=== PATIENT | male | born 1990 | race African-American/Black ===

== ENCOUNTER 2024-08-17 13:11 | Emergency (ER) | payer OTHER, SELFPAY ==
--- NOTE | ~2024-08-17 | XR_ITS ---
XR abdomen/kub 1V Ordering provider: Christian Howard APRN History: . abdomen cramping- r/o constipation . Comparison: None. FINDINGS: BOWEL: Nonobstructive bowel gas pattern. ORGANOMEGALY: None. SIGNIFICANT PATHOLOGIC CALCIFICATIONS: None. OTHER: No free air is seen under the diaphragm. IMPRESSION: NO ACUTE ABDOMINAL FINDINGS. Reviewed, dictated and finalized at location A.
--- NOTE | 2024-08-17 13:25 | ED_ITS ---
HPI - Abdominal Pain General Chief Complaint: Abdominal Pain <Christian Howard APRN - Last Filed: 08/17/24 15:07> Stated Complaint: Abdominal Pain <Christian Howard APRN - Last Filed: 08/17/24 15:07> Time Seen by Provider: 08/17/24 13:58 <Christian Howard APRN - Last Filed: 08/17/24 15:07> Source: patient <Christian Howard APRN - Last Filed: 08/17/24 15:07> Mode of arrival: ambulatory <Christian Howard APRN - Last Filed: 08/17/24 15:07> Limitations: no limitations <Christian Howard APRN - Last Filed: 08/17/24 15:07> History of Present Illness HPI narrative: Johnie is a 33-year-old male patient presenting to the clinic today with complaints of mid umbilical pain. Reports that the cramping is coming and going. States the intensity of the cramping has gotten better after having a bowel movement however he still having some cramping that lasts about 30 seconds to 1 minute. Denies any nausea or vomiting. Denies any GERD symptoms. Denies any blood in his stool or any urinary symptoms. No fevers, chills, body aches. No history of kidney stones. Denies pain currently. Denies bloating. <Christian Howard APRN - Last Filed: 08/17/24 15:07> Related Data Allergies/Adverse Reactions: Allergies Allergy/AdvReac Type Severity Reaction Status Date / Time No Known Allergies Allergy Verified 08/17/24 13:43 <Christian Howard APRN - Last Filed: 08/17/24 15:07> Review of Systems Review of Systems: Pertinent positives per HPI. Patient denies any fever, chills, rash, headache, visual changes, dizziness, cough, runny nose, sore throat, shortness of breath, chest pain, palpitations, nausea, vomiting, diarrhea, constipation, or any urinary issues. <Christian Howard APRN - Last Filed: 08/17/24 15:07> PMFSH Comments At the time of my signature, I reviewed and agree with the nursing past medical, surgical, social, and family history. There is no relevant family history pertinent to the patient complaint. <Christian Howard APRN - Last Filed: 08/17/24 15:07> Exam Narrative: General: Well-developed, well nourished, in no apparent distress. Head: Normocephalic, atraumatic. Cardio: Regular rate and rhythm, s1 and s2 normal, no murmur appreciated. Resp: Clear to auscultation bilaterally, no rhonchi, rales, wheezing or rubs. Abdomen: Soft, pliable, nondistended per patient, bowel sounds present in all quadrants, non-tender to palpation, no organomegly, no CVAT tenderness. <Christian Howard APRN - Last Filed: 08/17/24 15:07> Course Course Emergency Course: Portions of this record may have been created with voice recognition software. <Christian Howard APRN - Last Filed: 08/17/24 15:07> Level of Care: Express Care Visit <Christian Howard APRN - Last Filed: 08/17/24 15:07> Vital Signs Vital signs: Vital Signs Temperature 96.8 F L 08/17/24 13:43 Pulse Rate 110 H 08/17/24 13:43 Respiratory Rate 18 08/17/24 13:43 Blood Pressure 128/86 08/17/24 13:43 Pulse Oximetry 98 08/17/24 13:43 Oxygen Delivery Room Air 08/17/24 13:43 Temperature 96.8 F L 08/17/24 13:43 Pulse Rate 110 H 08/17/24 13:43 Respiratory Rate 18 08/17/24 13:43 Blood Pressure 128/86 08/17/24 13:43 Pulse Oximetry 98 08/17/24 13:43 Oxygen Delivery Room Air 08/17/24 13:43 Vital signs reviewed <Christian Howard APRN - Last Filed: 08/17/24 15:07> Vital Signs Temperature 96.8 F L 08/17/24 13:43 Pulse Rate 110 H 08/17/24 13:43 Respiratory Rate 18 08/17/24 13:43 Blood Pressure 128/86 08/17/24 13:43 Pulse Oximetry 98 08/17/24 13:43 Oxygen Delivery Room Air 08/17/24 13:43 Temperature 96.8 F L 08/17/24 13:43 Pulse Rate 110 H 08/17/24 13:43 Respiratory Rate 18 08/17/24 13:43 Blood Pressure 128/86 08/17/24 13:43 Pulse Oximetry 98 08/17/24 13:43 Oxygen Delivery Room Air 08/17/24 13:43 <Maribel Medina, CREDIT CONTROL CLERK - Last Filed: 08/17/24 15:16> MDM - Abdominal Pain MDM Narrative Medical decision making narrative: At the time of visit patient is resting comfortably on the exam table. Patient appears to be nontoxic. No fever, blood in stool, urinary symptoms, flank pain, or abdominal cramping/pain at this time. Recommend imaging to rule out constipation. We do not have imaging in the clinic today patient agreed to go to [facility] for imaging. Contacted Maribel CORONADO at [facility] and report was given for continuity of care. If no constipation plan to send in prescription for Levsin for the cramping. Diagnostics: X-ray was negative for any sign constipation or acute abdomen pathology Plan: I suspect patient has abdominal cramping. Will send in prescription for Levsin. Supportive measures were discussed with the patient he voiced under standing of the discharge instructions agrees to treatment plan. Return precautions advised. <Christian Howard, CREDIT CONTROL CLERK - Last Filed: 08/17/24 15:07> At the time of visit patient is resting comfortably on the exam table. Patient appears to be nontoxic. No fever, blood in stool, urinary symptoms, flank pain, or abdominal cramping/pain at this time. Recommend imaging to rule out constipation. We do not have imaging in the clinic today patient agreed to go to [facility] for imaging. Contacted Maribel CORONADO at [facility] and report was given for continuity of care. If no constipation plan to send in prescription for Levsin for the cramping. Diagnostics: X-ray was negative for any sign constipation or acute abdomen pathology Plan: I suspect patient has abdominal cramping. Will send in prescription for Levsin. Supportive measures were discussed with the patient he voiced understanding of the discharge instructions agrees to treatment plan. Return precautions advised. Report received from Christian MACHINE TRACER. patient arrived to clinic, [employer] obtained. Discussed results with patient. Discussed with patient that Christian would be calling in Levsin for his cramping. Also discussed signs and symptoms for further evaluation. Patient and family member with no questions at this time <Maribel Medina APRN - Last Filed: 08/17/24 15:16> Differential Diagnosis Differential diagnosis: Likely abdominal pain, acute appendicitis, calculus of kidney, constipation, diverticulitis, gastroenteritis, pancreatitis and small bowel obstruction <Christian Howard APRN - Last Filed: 08/17/24 15:07> Imaging Data Radiologist's impression: ITS Impressions Abdomen X-Ray 08/17/24 14:54 IMPRESSION: NO ACUTE ABDOMINAL FINDINGS. <Christian Howard APRN - Last Filed: 08/17/24 15:07> ITS Impressions Abdomen X-Ray 08/17/24 14:54 IMPRESSION: NO ACUTE ABDOMINAL FINDINGS. <Maribel Medina APRN - Last Filed: 08/17/24 15:16> Discharge Plan Discharge Clinical Impression: Abdominal cramping <Christian Howard APRN - Last Filed: 08/17/24 15:07> Patient Disposition: Home <Christian Howard APRN - Last Filed: 08/17/24 15:07> Condition: Stable <Christian Howard APRN - Last Filed: 08/17/24 15:07> Instructions: Antibiotic Form, Abdominal Pain (ED) <Christian Howard APRN - Last Filed: 08/17/24 15:07> Additional Instructions: Increase fluids and stay well hydrated Take Levsin as needed for abdominal cramping May take Tylenol/ibuprofen as needed for pain If abdomen pain worsens recommend going to the emergency room for further evaluation Follow-up with your primary care doctor as needed <Christian Howard APRN - Last Filed: 08/17/24 15:07> Patient Language: Malawian <Christian Howard APRN - Last Filed: 08/17/24 15:07> Prescriptions: New hyoscyamine sulfate [Levsin/SL] 0.125 mg tablet, sublingual 0.125 mg PO QID PRN (Reason: dyspepsia) 3 Days Qty: 12 0RF <Christian Howard APRN - Last Filed: 08/17/24 15:07> Follow-up/Referrals: UNKNOWN,DOCTOR [Primary Care Provider] - <Christian Howard APRN - Last Filed: 08/17/24 15:07> Time of Disposition: 15:01 <Christian Howard APRN - Last Filed: 08/17/24 15:07> 15:01 <Maribel Medina APRN - Last Filed: 08/17/24 15:16> Quality NIHSS Nursing Documentation ED NIHSS nursing documentation: reviewed/agree <Christian Howard APRN - Last Filed: 08/17/24 15:07>
[2024-08-17 13:43] VITALS: BP 128/86; PULSE 110; RESP 18; TEMP 36; O2SAT 98
== END 2024-08-17 15:10 | disposition home or self-care (01) ==
PROVIDERS: Emergency Provider Nurse Practitioner Family
DX: R10.9 Unspecified abdominal pain (principal)
CPT/HCPCS: 74018; 99203; G0463